=== PATIENT | male | born 1940 | race Two or more races ===

== ENCOUNTER 2018-04-05 03:10 | Inpatient (IN) ==
[2018-04-05 03:29] LABS: Baso # (Auto) 0.1 th/mm3 (0.0-0.2); Baso % (Auto) 0.8 % (0.0-2.0); Eos # (Auto) 0.1 th/mm3 (0.0-0.4); Eos % (Auto) 1.7 % (0.0-4.0); Hematocrit 44.1 % (39.0-51.0); Hemoglobin 14.6 gm/dL (13.0-17.0); Lymph # (Auto) 2.1 th/mm3 (1.0-4.8); Lymph % (Auto) 24.2 % (9.0-44.0); Mean Corpuscular HGB Conc 33.1 % (32.0-36.0); Mean Corpuscular Hemoglobin 29.6 pg (27.0-34.0); Mean Corpuscular Volume 89.3 fL (80.0-100.0); Mean Platelet Volume 7.5 fL (7.0-11.0); Mono # (Auto) 0.7 th/mm3 (0.0-0.9); Mono % (Auto) 8.6 % (0.0-8.0); Neut # (Auto) 5.5 th/mm3 (1.8-7.7); Neut % (Auto) 64.7 % (16.0-70.0); Platelet Count 272 th/mm3 (150-450); Red Blood Count 4.94 mil/mm3 (4.50-5.90); Red Cell Distribution Width 13.9 % (11.6-17.2); White Blood Count 8.5 th/mm3 (4.0-11.0)
[2018-04-05] MEDS: Sod Chloride 0.9% Inj 1,000 ML IV.CONT SCH ×2 (03:33→17:35)
[2018-04-05 03:37] LABS: Activated Partial Thrombo Time 32.3 sec (23.4-31.7); Prothrombin Time 10.1 sec (9.8-11.6)
[2018-04-05 03:47] LABS: Creatine Kinase 44 U/L (39-308)
--- NOTE | 2018-04-05 03:48 | CT ---
EXAM DATE: 04/05/2018 3:31 AM EST AGE/SEX: 77 years / Male INDICATIONS: Right sided weakness. CLINICAL DATA: This is the patient's initial encounter. Patient reports that signs and symptoms have been present for 1 day and indicates a pain score of 0/10. MEDICAL/SURGICAL HISTORY: Hypertension. Cerebrovascular disease. None. RADIATION DOSE: 56.35 CTDI (mGy) COMPARISON: [facility] – [place], CT CEREBRAL PERF W CONTRAST W 3D, 04/05/2018. . TECHNIQUE: CT of the head without contrast. Using automated exposure control and adjustment of the mA and/or kV according to patient size, radiation dose was kept as low as reasonably achievable to ob tain optimal diagnostic quality images. DICOM format image data is available electronically for revi ew and comparison. FINDINGS: Cerebrum: Prominence of the ventricles, sulci, and cisterns indicating diffuse cerebral atrophy. Old lacunar infarct of the left basal ganglia.. No evidence of midline shift, mass lesion, hemorrhage o r acute infarction. No extraaxial fluid collections are seen. Posterior Fossa: The cerebellum and brainstem are intact. The 4th ventricle is midline. The cerebe llopontine angle is unremarkable. Extracranial: The visualized portion of the orbits is intact. Skull: The calvaria is intact. No evidence of skull fracture. CONCLUSION: 1. No acute intracranial findings. 2. Diffuse atrophy. 3. Old left basal ganglia lacunar infarct. Report was called by [Dr. Lea to Dr. Ibarra at [phone]. ] Electronically signed by: Otoniel Lea MD 04/05/2018 3:47 AM EST
--- NOTE | 2018-04-05 03:52 | ED ---
HPI General Chief Complaint: Stroke Alert Stated Complaint: Cardiac Time Seen by Provider: 04/05/18 03:15 Source: patient and EMS Mode of arrival: EMS Limitations: physical limitation History of Present Illness HPI Narrative: 77-year-old male was brought in by EMS stroke alert. Patient went to bed around 9:00. Patient woke up at 2:30 in the morning with slurred speech and right facial weakness and right arm right leg weakness. Patient's called EMS. Patient was brought in for evaluation. Stroke alert was called from the field. Patient has history of CVA in the past. Patient also has history hypertension, diabetes, hyperlipidemia. Patient is a former smoker. No reported recent injury. Patient is not on anticoagulant. No history of atrial fibrillation. Onset (ago): hour(s) Last Observed Normal: 21:00 Timing confirmed by: spouse Location: Reports speech, right face, right arm and right leg History of same: No Severity: moderate Quality: Reports weak Relieving factors: none Exacerbating factors: none Context: Reports sudden onset On Anticoagulants: No Associated symptoms: Reports denies other symptoms Treatments Prior to Arrival: Reports none Related Data Home Medications Medication Instructions Recorded Confirmed atorvastatin 40 mg PO DAILY 04/05/18 04/05/18 metformin 500 mg PO BID 04/05/18 04/05/18 zolpidem 1 tab PO HS 04/05/18 04/05/18 Allergies Allergy/AdvReac Type Severity Reaction Status Date / Time No Known Allergies Uncoded 10/11/10 13:51 Review of Systems ROS: all other systems reviewed are negative PMFSH Medical History Medical History High cholesterol (Acute) Hypertension (Acute) Stroke (Acute) Social History Social History Second Hand Smoke Exposure: Yes Smoking Status: Former smoker Tobacco Type: Cigarettes How Often Do You Have a Drink Containing Alcohol: Monthly or less Recent Travel in [facility] within the Last 8 Weeks: No Recent Out of Country Travel within the Last 8 Weeks: No Immunization History Tetanus Immunization: Unsure Exam Narrative Exam Narrative: GENERAL: Well-nourished, well-developed patient. SKIN: Focused skin assessment warm/dry. HEAD: Normocephalic. EYES: No scleral icterus. No injection or drainage. NECK: Supple, trachea midline. No JVD or lymphadenopathy. CARDIOVASCULAR: Regular rate and rhythm without murmurs, gallops, or rubs. RESPIRATORY: Breath sounds equal bilaterally. No accessory muscle use. GASTROINTESTINAL: Abdomen soft, non-tender, nondistended. MUSCULOSKELETAL: No cyanosis, or edema. BACK: Nontender without obvious deformity. No CVA tenderness. Neurologic exam: Patient is lethargic however follow commands appropriately. Patient has right-sided facial drooping, slurred speech, weakness to right arm and right leg. Patient has visual field intact. Deep tendon reflexes 1+ and equal. Negative Babinski. Course Initial Documented Vital Signs Temperature 98.1 F 04/05/18 03:13 Pulse Rate 75 04/05/18 03:13 Respiratory Rate 16 04/05/18 03:13 Blood Pressure 172/122 H 04/05/18 03:13 Pulse Oximetry 98 04/05/18 03:13 Last Documented Vital Signs Temperature 98.1 F 04/05/18 03:13 Pulse Rate 66 04/05/18 03:57 Respiratory Rate 16 04/05/18 03:57 Blood Pressure 152/76 H 04/05/18 03:57 Pulse Oximetry 99 04/05/18 04:02 NIH Stroke Scale NIH Stroke Scale Level of Consciousness: 0-Alert Orientation Questions: 0-Answers both correct Responds to Commands: 0-Both tasks correct Gaze Eye Movement: 1-Partial gaze palsy Visual Gutiérrez: 0-No visual field defect Facial Movement: 2-Partial facial palsy Motor Functions Arm LEFT: 0-No drift Motor Functions Arm RIGHT: 1-Drift before 10 seconds Motor Functions Leg LEFT: 0-No drift Motor Functions Leg RIGHT: 0-No drift Limb Ataxia: 0-No ataxia Sensory Loss: 0-No sensory loss Best Language: 1-Mild aphasia Articulation: 1-Mild dysarthia Extinction or Inattention Sensory: 0-Absent Total: 6 Quality Measure Queries Stroke Last date observed well: 04/04/18 Last time observed well: 21:00 Medical Decision Making MDM Narrative Medical decision making narrative: 77-year-old male was brought in by EMS stroke alert. Patient went to bed around 9:00 in the evening and woke up around 2:30 in the morning with symptoms. I discussed the case with neurologist on-call, Dr. Blanca. Patient is not a candidate for TPA. Aspirin 300 mg suppository given. Head of bed flat. O2 2 L nasal cannula. Normal saline solution 100 cc an hour. Medical Screen Exam Complete: Yes Emergency Medical Condition: Yes Lab Data Lab results reviewed: Yes I reviewed the patient's lab results. Result diagrams: 04/05/18 03:13 Lab Results 04/05/18 04/05/18 04/05/18 Range/Units 03:13 03:13 03:13 WBC 8.5 (4.0-11.0) th/mm3 RBC 4.94 (4.50-5.90) mil/mm3 Hgb 14.6 (13.0-17.0) gm/dL POC Hgb (Calc) 15.0 (13.0-17.0) g/dL Hct 44.1 (39.0-51.0) % POC Hct 44.0 (39-51.0) % MCV 89.3 (80.0-100.0) fL MCH 29.6 (27.0-34.0) pg MCHC 33.1 (32.0-36.0) % RDW 13.9 (11.6-17.2) % Plt Count 272 (150-450) th/mm3 MPV 7.5 (7.0-11.0) fL Neut % (Auto) 64.7 (16.0-70.0) % Lymph % (Auto) 24.2 (9.0-44.0) % [place] % (Auto) 8.6 H (0.0-8.0) % Eos % (Auto) 1.7 (0.0-4.0) % Baso % (Auto) 0.8 (0.0-2.0) % Neut # (Auto) 5.5 (1.8-7.7) th/mm3 Lymph # (Auto) 2.1 (1.0-4.8) th/mm3 Baxter # (Auto) 0.7 (0.0-0.9) th/mm3 Eos # (Auto) 0.1 (0.0-0.4) th/mm3 Baso # (Auto) 0.1 (0.0-0.2) th/mm3 WBC Differential . Differential Comment Auto diff final PT 10.1 (9.8-11.6) sec INR 1.0 Ratio APTT 32.3 H (23.4-31.7) sec Fibrinogen 412 H (227-377) mg/dL POC Sodium 140 (137-144) mmol/L POC Potassium 3.8 (3.6-5.0) mmol/L POC Chloride 102 (102-111) mmol/L POC BUN 11 (5-21) mg/dL POC Creatinine 0.9 (0.6-1.3) mg/dL POC Glucose 179 H (68-110) mg/dL Total Creatine Kinase 44 (39-308) U/L Troponin I Less than 0.02 L (0.02-0.05) ng/mL Urine Color (Yellw/Straw) Urine Clarity (Clear) Urine pH (5.0-8.5) Ur Specific [place] (1.002-1.035) Urine Protein (Neg-Trace) mg/dL Urine Glucose (UA) (Negative) mg/dL Urine Ketones (Negative) mg/dL Urine Occult Blood (Negative) Urine Nitrate (Negative) Urine Bilirubin (Negative) Urine Urobilinogen (Less than 2) mg/dL Ur Leukocyte Esterase (Negative) Urine RBC (0-3) /hpf Urine WBC (0-5) /hpf Ur Transition Epith Cell (None) /hpf Ur Renal Epithelial Cell (None) /hpf Hyaline Casts (0-3) /lpf Micro UA Comment Ur Microscopic Review Urine Culture Comments Blood Type Blood Type Recheck Antibody Screen 04/05/18 04/05/18 Range/Units 03:13 04:25 WBC (4.0-11.0) th/mm3 RBC (4.50-5.90) mil/mm3 Hgb (13.0-17.0) gm/dL POC Hgb (Calc) (13.0-17.0) g/dL Hct (39.0-51.0) % POC Hct (39-51.0) % MCV (80.0-100.0) fL MCH (27.0-34.0) pg MCHC (32.0-36.0) % RDW (11.6-17.2) % Plt Count (150-450) th/mm3 MPV (7.0-11.0) fL Neut % (Auto) (16.0-70.0) % Lymph % (Auto) (9.0-44.0) % [place] % (Auto) (0.0-8.0) % Eos % (Auto) (0.0-4.0) % Baso % (Auto) (0.0-2.0) % Neut # (Auto) (1.8-7.7) th/mm3 Lymph # (Auto) (1.0-4.8) th/mm3 [place] # (Auto) (0.0-0.9) th/mm3 Eos # (Auto) (0.0-0.4) th/mm3 Baso # (Auto) (0.0-0.2) th/mm3 WBC Differential Differential Comment PT (9.8-11.6) sec INR Ratio APTT (23.4-31.7) sec Fibrinogen (227-377) mg/dL POC Sodium (137-144) mmol/L POC Potassium (3.6-5.0) mmol/L POC Chloride (102-111) mmol/L POC BUN (5-21) mg/dL POC Creatinine (0.6-1.3) mg/dL POC Glucose (68-110) mg/dL Total Creatine Kinase (39-308) U/L Troponin I (0.02-0.05) ng/mL Urine Color Yellow (Yellw/Straw) Urine Clarity Clear (Clear) Urine pH 6.0 (5.0-8.5) Ur Specific [place] 1.028 (1.002-1.035) Urine Protein Negative (Neg-Trace) mg/dL Urine Glucose (UA) 50 (Negative) mg/dL Urine Ketones Negative (Negative) mg/dL Urine Occult Blood Negative (Negative) Urine Nitrate Negative (Negative) Urine Bilirubin Negative (Negative) Urine Urobilinogen 0.2 (Less than 2) mg/dL Ur Leukocyte Esterase Negative (Negative) Urine RBC 5 H (0-3) /hpf Urine WBC 1 (0-5) /hpf Ur Transition Epith Cell <1 (None) /hpf Ur Renal Epithelial Cell <1 (None) /hpf Hyaline Casts 3 (0-3) /lpf Micro UA Comment Cath-culture not ind Ur Microscopic Review Not Reportable Urine Culture Comments Cath-cult not ind Blood Type A Positive Blood Type Recheck Required Antibody Screen Negative Imaging Data Attestation: I personally reviewed and interpreted this imaging study as follows : Radiologist's impression: Chest X-Ray 04/05/18 03:16 CONCLUSION: Low lung volumes and pulmonary vascular congestion. Head CT 04/05/18 03:16 CONCLUSION: 1. No acute intracranial findings. 2. Diffuse atrophy. 3. Old left basal ganglia lacunar infarct. Report was called by [Dr. Lea to Dr. Ibarra at [phone]. ] Head CTA 04/05/18 03:16 CONCLUSION: No evidence of proximal occlusion or high-grade stenosis. Report was called by [Dr. Lea to Dr. Rojas at [phone] ] Neck CTA 04/05/18 03:16 CONCLUSION: Ulcerated plaque right carotid bulb. No evidence of significant stenosis. CT CAD 04/05/18 03:19 CONCLUSION: Physiological brain perfusion parameters with RAPID analysis as above. The decision for consideration of therapy is multi factorial and multi disciplinary relying on subjective and objective clinical data. This data is not construed or intended to be the sole determinant of treatment eligibility. Discharge Plan Discharge Disposition Patient Disposition: ED Admit(ED Internal Use Only) Discharge Details Diagnosis: Acute cerebrovascular accident Physicians Team ED Provider: Dany Ibarra Primary Care Provider: UNKNOWN, Other Providers: Georgina Blanca Rxs /Orders / Referrals /Forms Prescriptions: No Action atorvastatin 40 mg Tablet 40 mg PO DAILY RF: 0 metformin 500 mg Tablet 500 mg PO BID RF: 0 zolpidem 5 mg Tablet 1 tab PO HS RF: 0 Status ED Status: With Doctor
[2018-04-05] MEDS ORDERED: Aspirin 300 MG Supp RECTAL ONE (03:56)
--- NOTE | 2018-04-05 03:56 | CT ---
EXAM DATE: 04/05/2018 3:41 AM EST AGE/SEX: 77 years / Male INDICATIONS: Right sided weakness. CLINICAL DATA: This is the patient's initial encounter. Patient reports that signs and symptoms have been present for 1 day and indicates a pain score of 0/10. MEDICAL/SURGICAL HISTORY: Hypertension. Cerebrovascular disease. None. RADIATION DOSE: 10.47 CTDI (mGy) ; Combined studies COMPARISON: [facility], CTA NECK W CONTRAST W 3D, 04/05/2018. . TECHNIQUE: Volumetric scanning was performed using a multi-row detector CT scanner during bolus infu landy of 100 ml Visipaque 320 (iodixanol) nonionic water-soluble contrast as a cumulative dose for mu ltiple exams. The data was post processed with a variety of visualization algorithms including full volume maximum intensity projection, multi-planar sliding thin slab reformation, curved planar refor mation, and surface rendering techniques. Using automated exposure control and adjustment of the mA and/or kV according to patient size, radiation dose was kept as low as reasonably achievable to obtai n optimal diagnostic quality images. DICOM format image data is available electronically for review and comparison. FINDINGS: There is excellent visualization of the major intracranial arteries out to the second-order branch ve ssels. There is no evidence for aneurysm, vessel truncation or stenosis, and no evidence for vascula r malformation. There is evidence of atherosclerotic disease with mild contour irregularity of the pr oximal MCA on the right. 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 CONCLUSION: No evidence of proximal occlusion or high-grade stenosis. Report was called by [Dr. Lea to Dr. Rojas at [phone] ] Electronically signed by: Otoniel Lea MD 04/05/2018 3:55 AM EST
--- NOTE | 2018-04-05 03:57 | CT ---
EXAM DATE: 04/05/2018 3:41 AM EST AGE/SEX: 77 years / Male INDICATIONS: Right sided weakness. CLINICAL DATA: This is the patient's initial encounter. Patient reports that signs and symptoms have been present for 1 day and indicates a pain score of 0/10. MEDICAL/SURGICAL HISTORY: Hypertension. Cerebrovascular disease. None. RADIATION DOSE: 217.41 CTDI (mGy) COMPARISON: No prior exams available for comparison. TECHNIQUE: CT of the head after intravenous administration of 100 ml Visipaque 320 (iodixanol) timmy onic water-soluble contrast as a cumulative dose for multiple exams. Using automated exposure contro l and adjustment of the mA and/or kV according to patient size, radiation dose was kept as low as redd sonably achievable to obtain optimal diagnostic quality images. DICOM format image data is available electronically for review and comparison. FINDINGS: 1. CBF (<30%) Volume (ml): 0 2. Perfusion (Tmax>6.0s) Volume (ml): 0 3. Mismatch Volume (ml) (Tmax>6.0 - CBF): 0 CONCLUSION: Physiological brain perfusion parameters with RAPID analysis as above. The decision for consideration of therapy is multi factorial and multi disciplinary relying on subjec tive and objective clinical data. This data is not construed or intended to be the sole determinant of treatment eligibility. Electronically signed by: Otoniel Lea MD 04/05/2018 3:56 AM EST
--- NOTE | 2018-04-05 04:01 | CT ---
EXAM DATE: 04/05/2018 3:51 AM EST AGE/SEX: 77 years / Male INDICATIONS: Right sided weakness. CLINICAL DATA: This is the patient's initial encounter. Patient reports that signs and symptoms have been present for 1 day and indicates a pain score of 0/10. MEDICAL/SURGICAL HISTORY: Hypertension. Cerebrovascular disease. None. RADIATION DOSE: 10.47 CTDI (mGy) ; Combined studies COMPARISON: No prior exams available for comparison. TECHNIQUE: Volumetric scanning was performed using a multirow detector CT scanner during bolus infus ion of 100 ml Visipaque 320 (iodixanol) nonionic water-soluble contrast as a cumulative dose for mul tiple exams. The data was postprocessed with a variety of visualization algorithms including full-v olume maximum intensity projection, multiplanar sliding thin-slab reformation, curved-planar reformat ion, and surface-rendering techniques. Using automated exposure control and adjustment of the mA and /or kV according to patient size, radiation dose was kept as low as reasonably achievable to obtain o ptimal diagnostic quality images. DICOM format image data is available electronically for review and comparison. Percent stenosis is calculated using the diameter of the stenotic region over the diameter of the nor mal distal internal carotid artery. FINDINGS: Diffuse atherosclerotic disease of the aortic arch. The proximal left subclavian artery demonstrates atherosclerotic plaque but no significant stenosis. Brachiocephalic artery and proximal right subclav adrianna artery are widely patent. Right common carotid artery is widely patent. There is an ulcerated plaque at the carotid bulb/right ICA origin. No significant stenosis. Right ICA is otherwise widely patent. External carotid artery is patent. Left common carotid artery is widely patent. Calcified plaque at the carotid bulb. Left ICA is widely patent. ECA is patent. Codominant vertebral arteries. No evidence of occlusion or high-grade stenosis. CONCLUSION: Ulcerated plaque right carotid bulb. No evidence of significant stenosis. Electronically signed by: Otoniel Lea MD 04/05/2018 4:00 AM EST
--- NOTE | 2018-04-05 04:09 | XR ---
EXAM DATE: 04/05/2018 3:50 AM EST AGE/SEX: 77 years / Male INDICATIONS: Stroke alert. CLINICAL DATA: This is the patient's initial encounter. Patient reports that signs and symptoms have been present for 1 day and indicates a pain score of Nonresponsive. MEDICAL/SURGICAL HISTORY: Hypertension. Stroke. None. COMPARISON: No prior exams available for comparison. FINDINGS: Single AP view the chest. Low lung volumes. Mild pulmonary vasculature prominence. Lungs grossly altagracia r. No evidence of pleural effusion or pneumothorax. Cardiomediastinal silhouette within normal limits . CONCLUSION: Low lung volumes and pulmonary vascular congestion. Electronically signed by: Otoniel Lea MD 04/05/2018 4:07 AM EST
[2018-04-05 04:38] LABS: Bilirubin,Urine Negative (Negative); Clarity,Urine Clear (Clear); Color,Urine Yellow (Yellw/Straw); Glucose,Urine (UA) 50 mg/dL (Negative); Hyaline Casts,Urine 3 /lpf (0-3); Leukocyte Esterase,Urine Negative (Negative); Nitrite,Urine Negative (Negative); Renal Epithelial Cells,Urine <1 /hpf; Specific Gravity,Urine 1.028 (1.002-1.035); Transitional Epi Cells,Urine <1 /hpf
[2018-04-05 04:39] LABS: Urobilinogen,Urine 0.2 mg/dL (Less than 2)
[2018-04-05] MEDS ORDERED: Dextrose 50% in Water 50 ML Vial IV.PUSH PRN ×2 (06:02→09:09)
--- NOTE | 2018-04-05 08:05 | P.CONNEU ---
History of Present Illness Service: Neurology Primary Care Provider: UNKNOWN Chief Complaint: Stroke History of Present Illness: 77-year-old male admitted for stroke. Went to sleep normal state of health woke up middle the night with right-sided weakness and speech changes. He is out of the IV TPA window. He has CT of the brain carotid performed no significant vaso-occlusive disease noted. He does not take any blood thinners no antiplatelet agents no history of previous TIA or stroke. No history of head or neck trauma no history of atrial fibrillation Review of Systems All other systems reviewed negative except as stated in HPI PMFSH - History History Provided By: Clinical Orthoptist / EMT - Medical History Medical History: Medical History (Last Reviewed 04/05/18 @ 08:57 by Garrett Meneses) High cholesterol Hypertension Stroke - Tobacco History Second Hand Smoke Exposure: Yes Tobacco Use In Past 30 Days: Yes Smoking Status: Former smoker Tobacco Type: Cigarettes - Alcohol History How Often Do You Have a Drink Containing Alcohol: Monthly or less - Travel History Recent Travel in the [facility] Within the Last 8 Weeks: No Recent Travel Out of the Country Within the Last 8 Weeks: No - Immunization History Tetanus Immunization: Unsure Medications and Allergies Active Medications: Active Medications Aspirin (Aspirin Chew) 81 mg PO DAILY [facility] Dextrose (D50w Vial) 50 ml IV.PUSH UNSCH PRN PRN Reason: PER HYPOGLYCEMIA PROTOCOL Glucagon (Glucagon Inj) 1 mg OTHER UNSCH PRN PRN Reason: for Hypoglycemia Protocol Sodium Chloride (Ns Inj) 1,000 mls @ 70 mls/hr IV.CONT .[id number] [facility] Last Admin: 04/05/18 03:33 Dose: 70 mls/hr Sodium Chloride (Ns Flush) 2 ml IV.FLUSH BID [facility] Sodium Chloride (Ns Flush) 2 ml IV.FLUSH PRN PRN PRN Reason: FLUSH AFTER USING IV ACCESS Allergies Allergy/AdvReac Type Severity Reaction Status Date / Time No Known Allergies Uncoded 10/11/10 13:51 Home Medications Medication Instructions Recorded Confirmed Type atorvastatin 40 mg PO DAILY 04/05/18 04/05/18 History metformin 500 mg PO BID 04/05/18 04/05/18 History zolpidem 1 tab PO HS 04/05/18 04/05/18 History Exam Vital signs: Vital Signs 04/05/18 03:13 04/05/18 03:14 04/05/18 03:20 Temperature 98.1 F Pulse Rate 75 77 Respiratory Rate 16 16 Blood Pressure 172/122 H 178/91 H Pulse Oximetry 98 99 99 04/05/18 03:28 04/05/18 03:57 04/05/18 04:02 Temperature Pulse Rate 68 66 Respiratory Rate 16 16 Blood Pressure 151/69 H 152/76 H Pulse Oximetry 98 98 99 04/05/18 05:27 04/05/18 06:10 Temperature Pulse Rate 84 67 Respiratory Rate 16 16 Blood Pressure 157/76 H 136/69 Pulse Oximetry 99 99 Intake & Output 04/04/18 04/05/18 04/05/18 18:59 06:59 18:59 Weight 75.7 kg Narrative: GENERAL: in NAD, SKIN: Warm and dry. HEAD: Atraumatic. Normocephalic. EYES: Pupils equal and round. ENT: No nasal bleeding or discharge. NECK: Trachea midline. No JVD. CARDIOVASCULAR: Regular rate and rhythm. RESPIRATORY: No accessory muscle use. GASTROINTESTINAL: Abdomen soft, non-tender, nondistended. MUSCULOSKELETAL: Extremities without clubbing, cyanosis, or edema. No obvious deformities. NEUROLOGICAL: Awake and alert. 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, right hemiplegia strength 0 out of 5 PSYCHIATRIC: Calm pleasant - Constitutional no acute distress - Routine HEENT Exam Head: Present: normocephalic Eye: Present: EOMI Results - Labs CBC & Chem 7: 04/05/18 03:13 Labs: Laboratory Results - last 24 hr 04/05/18 04/05/18 04/05/18 03:13 03:13 03:13 WBC 8.5 RBC 4.94 Hgb 14.6 POC Hgb (Calc) 15.0 Hct 44.1 POC Hct 44.0 MCV 89.3 MCH 29.6 MCHC 33.1 RDW 13.9 Plt Count 272 MPV 7.5 Neut % (Auto) 64.7 Lymph % (Auto) 24.2 Camp % (Auto) 8.6 H Eos % (Auto) 1.7 Baso % (Auto) 0.8 Neut # (Auto) 5.5 Lymph # (Auto) 2.1 Camp # (Auto) 0.7 Eos # (Auto) 0.1 Baso # (Auto) 0.1 WBC Differential . Differential Comment Auto diff final PT 10.1 INR 1.0 APTT 32.3 H Fibrinogen 412 H POC Sodium 140 POC Potassium 3.8 POC Chloride 102 POC BUN 11 POC Creatinine 0.9 POC Glucose 179 H Total Creatine Kinase 44 Troponin I Less than 0.02 L Urine Color Urine Clarity Urine pH Ur Specific [place] Urine Protein Urine Glucose (UA) Urine Ketones Urine Occult Blood Urine Nitrate Urine Bilirubin Urine Urobilinogen Ur Leukocyte Esterase Urine RBC Urine WBC Ur Transition Epith Cell Ur Renal Epithelial Cell Hyaline Casts Micro UA Comment Ur Microscopic Review Urine Culture Comments Blood Type Blood Type Recheck Antibody Screen 04/05/18 04/05/18 04/05/18 03:13 04:25 06:15 WBC RBC Hgb POC Hgb (Calc) Hct POC Hct MCV MCH MCHC RDW Plt Count MPV Neut % (Auto) Lymph % (Auto) Camp % (Auto) Eos % (Auto) Baso % (Auto) Neut # (Auto) Lymph # (Auto) Camp # (Auto) Eos # (Auto) Baso # (Auto) WBC Differential Differential Comment PT INR APTT Fibrinogen POC Sodium POC Potassium POC Chloride POC BUN POC Creatinine POC Glucose 203 H Total Creatine Kinase Troponin I Urine Color Yellow Urine Clarity Clear Urine pH 6.0 Ur Specific [place] 1.028 Urine Protein Negative Urine Glucose (UA) 50 Urine Ketones Negative Urine Occult Blood Negative Urine Nitrate Negative Urine Bilirubin Negative Urine Urobilinogen 0.2 Ur Leukocyte Esterase Negative Urine RBC 5 H Urine WBC 1 Ur Transition Epith Cell <1 Ur Renal Epithelial Cell <1 Hyaline Casts 3 Micro UA Comment Cath-culture not ind Ur Microscopic Review Not Reportable Urine Culture Comments Cath-cult not ind Blood Type A Positive Blood Type Recheck Required Antibody Screen Negative - Imaging Impressions Chest X-Ray 04/05/18 03:16 CONCLUSION: Low lung volumes and pulmonary vascular congestion. Head CT 04/05/18 03:16 CONCLUSION: 1. No acute intracranial findings. 2. Diffuse atrophy. 3. Old left basal ganglia lacunar infarct. Report was called by [Dr. Lea to Dr. Ibarra at [phone]. ] Head CTA 04/05/18 03:16 CONCLUSION: No evidence of proximal occlusion or high-grade stenosis. Report was called by [Dr. Lea to Dr. Rojas at [phone] ] Neck CTA 04/05/18 03:16 CONCLUSION: Ulcerated plaque right carotid bulb. No evidence of significant stenosis. CT CAD 04/05/18 03:19 CONCLUSION: Physiological brain perfusion parameters with RAPID analysis as above. The decision for consideration of therapy is multi factorial and multi disciplinary relying on subjective and objective clinical data. This data is not construed or intended to be the sole determinant of treatment eligibility. Review/Management - Diagnosis (1) Acute ischemic stroke Code(s): I63.9 - Cerebral infarction, unspecified Status: Acute Current Visit: Yes (2) Hypertension Code(s): I10 - Essential (primary) hypertension Status: Acute Current Visit : Yes - Review/Management Plan: May have a left lower midbrain, upper pontine paramedian stroke resulting in right hemiplegia and internuclear ophthalmoplegia Possible small vessel ischemia secondary to chronic hypertension, dyslipidemia CTA carotids showing right-sided plaque which is not a culprit vessel and is in the case of stroke, in addition not hemodynamically significant CTA brain no vessel occlusion Recommendation MRI brain Aspirin suppository until tolerating p.o. cleared by speech 2D echo Telemetry SCDs Check fasting lipids, HbA1c Therapy Permissive hypertension tension Discussed with patient and spouse Behavioral modification and risk factor reduction. Weight loss, blood pressure control, blood sugar control, lipid control. Exercise
--- NOTE | 2018-04-05 08:17 | ECG ---
Date Performed: 04/05/2018 Time Performed: 03:45:37 PTAGE: 77 years EKG: Sinus rhythm NORMAL ECG NO PREVIOUS TRACING DOCTOR: Ryan Golden Interpretating Date/Time 04/05/2018 08:17:06
[2018-04-05] MEDS ORDERED: Aspirin 300 MG Supp RECTAL SCH (09:15)
[2018-04-05 10:05] LABS: Chol/HDL Ratio 4.21 Ratio; HDL Cholesterol 42.2 mg/dL (40.0-60.0); Thyroid Stimulating Hormone 2.98 uIU/mL (0.358-3.740)
--- NOTE | 2018-04-05 10:20 | MR ---
EXAM DATE: 04/05/2018 9:36 AM EST AGE/SEX: 77 years / Male INDICATIONS: Right sided weakness. CLINICAL DATA: This is the patient's initial encounter. Patient reports that signs and symptoms have been present for 1 day and indicates a pain score of 0/10. MEDICAL/SURGICAL HISTORY: Diabetes mellitus type II. Hypertension. Cerebrovascular disease. N one. COMPARISON: [facility], CT HEAD W/O CONTRAST, 04/05/2018. . TECHNIQUE: Multiplanar, multisequence examination of the brain was performed without contrast. FINDINGS: Cerebrum: The ventricles are normal for age. No evidence of midline shift, mass lesion, or hemorrha ge. There is a small old lacunar infarct in the left basal ganglia. No extraaxial fluid collections a re seen. The pituitary gland and suprasellar cistern are normal in configuration. White Matter: On the FLAIR weighted images there is increased signal in the centrum semiovale and pe riventricular white matter characteristic of chronic small vessel ischemic change. Posterior Fossa: The cerebellum and brainstem are intact. The 4th ventricle is midline. The cerebel lopontine angle is unremarkable. The cerebellar tonsils are normal in position. Diffusion Imaging: On the echoplanar weighted images there is a linear band of mild restricted diffu landy along the left side of the midbrain. This is best seen on axial image #8. Extracranial: The visualized portions of the orbits and paranasal sinuses are unremarkable. CONCLUSION: 1. Focal area of mild restricted diffusion along the left side of the midbrain consistent with an ac nondalton to subacute infarction. 2. Atrophy and chronic small vessel ischemic change. 3. Small old lacunar infarct in the left basal ganglia. Electronically signed by: Franki Almodovar MD 04/05/2018 10:18 AM EST
[2018-04-05] MEDS ORDERED: Labetalol HCl Inj 100 MG/20 ML Vial IV.PUSH PRN (12:27)
[2018-04-05] MEDS: Lidocaine 5% Patch T-DERMAL SCH (12:39)
--- NOTE | 2018-04-05 12:40 | P.HPIM ---
History of Present Illness Primary Care Physician: UNKNOWN Chief Complaint: Stroke alert History of Present Illness: This is a 77-year-old male with a history of previous CVA with no residual deficits, hypertension, diabetes mellitus and hyperlipidemia. He presented to the ED via EMS stroke alert. Went to bed around 9 last night and woke up at 230 this morning with slurred speech with right facial, right arm and right leg weakness. His then called EMS. Stroke workup shows left midbrain CVA. He has been started on aspirin suppository. Complains of lower back pain which is chronic. He is compliant with his medical therapy. All other systems reviewed negative Diagnosis (1) Acute ischemic stroke: (2) Hypertension: Inpatient Certification Inpatient Certification: I certify that the inpatient services were ordered in accordance with Medicare regulations governing the order. This includes certification that hospital inpatient services are reasonable and necessary and in the case of services not specified as inpatient-only under 42 CFR 419.22(n), that they are appropriately provided as inpatient services in accordance to with the 2-midnight benchmark under 43 CFR 412.3(e) Estimated Total Length of Stay (Days): 3 Plans for Post Hospital Care: Not yet determined Review of Systems Review of Systems: all other systems reviewed are negative [facility] Medical History Medical History High cholesterol (Acute) Hypertension (Acute) Stroke (Acute) Social History Social History Substance History: No History of Abuse Second Hand Smoke Exposure: No Smoking Status: Former smoker Tobacco Type: Cigarettes How Often Do You Have a Drink Containing Alcohol: 4 or more times a week Recent Travel in [facility] within the Last 8 Weeks: Yes Recent Out of Country Travel within the Last 8 Weeks: Yes Immunization History Tetanus Immunization: Unsure Hx Influenza Vaccine This Season: No Medications and Allergies Allergies Allergy/AdvReac Type Severity Reaction Status Date / Time No Known Allergies Uncoded 10/11/10 13:51 Home Medications Medication Instructions Recorded Confirmed Type atorvastatin 40 mg PO DAILY 04/05/18 04/05/18 History metformin 500 mg PO BID 04/05/18 04/05/18 History zolpidem 1 tab PO HS 04/05/18 04/05/18 History Active Medications: Active Medications Aspirin (Aspirin Supp) 300 mg RECTAL DAILY [facility] Dextrose (D50w Vial) 50 ml IV.PUSH UNSCH PRN PRN Reason: PER HYPOGLYCEMIA PROTOCOL Enalaprilat (Vasotec Inj) 1.25 mg IV.PUSH Q4H PRN PRN Reason: For SBP > 220 or DBP > 120 Glucagon (Glucagon Inj) 1 mg OTHER PRN PRN PRN Reason: for Hypoglycemia Protocol Sodium Chloride (Ns Inj) 1,000 mls @ 70 mls/hr IV.CONT .[id number] [facility] Last Admin: 04/05/18 03:33 Dose: 70 mls/hr Insulin Human Regular (Novolin R Correctional Sugar Inj) 0 units SQ ACHS [facility]; Protocol Labetalol HCl (Trandate Inj) 10 mg IV.PUSH Q2H PRN PRN Reason: For SBP > 220 or DBP > 120 Lidocaine HCl (Lidoderm 5% Patch.12 Hr) 1 patch T-DERMAL DAILY [facility] Patch Removal (Remove Old Patch) 1 each T-DERMAL HS [facility] Sodium Chloride (Ns Flush) 2 ml IV.FLUSH BID [facility] Last Admin: 04/05/18 08:32 Dose: Not Given Sodium Chloride (Ns Flush) 2 ml IV.FLUSH PRN PRN PRN Reason: FLUSH AFTER USING IV ACCESS Physical Exam Vital signs: Last Vital Signs Temp 97.4 F L 04/05/18 12:00 Pulse 79 04/05/18 12:00 Resp 16 04/05/18 12:00 BP 153/70 H 04/05/18 12:00 Pulse Ox 97 04/05/18 12:00 Intake & Output 04/03/18 04/04/18 04/05/18 04/06/18 06:59 06:59 06:59 06:59 Weight 75.7 kg Narrative: GENERAL: in NAD, SKIN: Warm and dry. HEAD: Atraumatic. Normocephalic. EYES: Pupils equal and round. ENT: No nasal bleeding or discharge. NECK: Trachea midline. No JVD. CARDIOVASCULAR: Regular rate and rhythm. RESPIRATORY: No accessory muscle use. GASTROINTESTINAL: Abdomen soft, non-tender, nondistended. MUSCULOSKELETAL: Extremities without clubbing, cyanosis, or edema. No obvious deformities. NEUROLOGICAL: Awake and alert. Severely dysarthric speech, right facial weakness,right hemiplegia strength 0 out of 5 PSYCHIATRIC: Calm pleasant Results Labs CBC & Chem 7: 12/11/18 03:13 Imaging Impressions Chest X-Ray 04/05/18 03:16 CONCLUSION: Low lung volumes and pulmonary vascular congestion. Head CT 04/05/18 03:16 CONCLUSION: 1. No acute intracranial findings. 2. Diffuse atrophy. 3. Old left basal ganglia lacunar infarct. Report was called by [Dr. Lea to Dr. Ibarra at [phone]. ] Head CTA 04/05/18 03:16 CONCLUSION: No evidence of proximal occlusion or high-grade stenosis. Report was called by [Dr. Lea to Dr. Rojas at [phone] ] Neck CTA 04/05/18 03:16 CONCLUSION: Ulcerated plaque right carotid bulb. No evidence of significant stenosis. CT CAD 04/05/18 03:19 CONCLUSION: Physiological brain perfusion parameters with RAPID analysis as above. The decision for consideration of therapy is multi factorial and multi disciplinary relying on subjective and objective clinical data. This data is not construed or intended to be the sole determinant of treatment eligibility. Head MRI 04/05/18 05:24 CONCLUSION: 1. Focal area of mild restricted diffusion along the left side of the midbrain consistent with an acute to subacute infarction. 2. Atrophy and chronic small vessel ischemic change. 3. Small old lacunar infarct in the left basal ganglia. Caprini VTE Risk Assessment Caprini VTE Risk Assessment: Moderate/High Risk (score >= 2) Caprini Risk Assessment Model: Point Value = 1 Point Value = 2 Point Value = 3 Point Value = 5 Age 41-60 Minor surgery BMI > 25 kg/m2 Swollen legs Varicose veins or History of unexplained or recurrent spontaneous Oral contraceptives or hormone replacement Sepsis (< 1 month) Serious lung disease, including pneumonia (< 1 month) Abnormal pulmonary function Acute myocardial infarction Congestive heart failure (< 1 month) History of inflammatory bowel disease Medical patient at bed rest Age 61-74 Arthroscopic surgery Major open surgery (> 45 min) Laparoscopic surgery (> 45 min) Malignancy Confined to bed (> 72 hours) Immobilizing plaster cast Central venous access Age >= 75 History of VTE Family history of VTE Factor V Leiden Prothrombin [id number] Lupus anticoagulant Anticardiolipin antibodies Elevated serum homocysteine Heparin-induced thrombocytopenia Other congenital or acquired thrombophilia Stroke (< 1 month) Elective arthroplasty Hip, pelvis, or leg fracture Acute spinal cord injury (< 1 month) Prophylaxis Regimen: Total Risk Factor Score Risk Level Prophylaxis Regimen 0-1 Low Early ambulation 2 Moderate Order ONE of the following: *Sequential Compression Device (SCD) *Heparin 5000 units SQ BID 3-4 Higher Order ONE of the following medications: *Heparin 5000 units SQ TID *Enoxaparin/Lovenox 40 mg SQ daily (WT < 150 kg, CrCl > 30 mL/min) *Enoxaparin/Lovenox 30 mg SQ daily (WT < 150 kg, CrCl > 10-29 mL/min) *Enoxaparin/Lovenox 30 mg SQ BID (WT < 150 kg, CrCl > 30 mL/min) AND/OR *Sequential Compression Device (SCD) 5 or more Highest Order ONE of the following medications: *Heparin 5000 units SQ TID (Preferred with Epidurals) *Enoxaparin/Lovenox 40 mg SQ daily (WT < 150 kg, CrCl > 30 mL/min) *Enoxaparin/Lovenox 30 mg SQ daily (WT < 150 kg, CrCl > 10-29 mL/min) *Enoxaparin/Lovenox 30 mg SQ BID (WT < 150 kg, CrCl > 30 mL/min) AND *Sequential Compression Device (SCD) Assessment and Plan (1) Acute ischemic stroke: Code(s): I63.9 - Cerebral infarction, unspecified Status: Acute (2) Hypertension: Code(s): I10 - Essential (primary) hypertension Status: Acute Plan This is a 77-year-old male with a history of previous CVA with no residual deficits, hypertension, diabetes mellitus and hyperlipidemia. He presented to the ED via EMS stroke alert secondary to acute onset of slurred speech with right facial, right arm and right leg weakness. His then called EMS. Stroke workup shows left midbrain CVA. Acute left midbrain CVA. Patient will be admitted for stroke workup. Follow- up echocardiogram, lipid profile and A1c. Continue aspirin and permissive hypertension with IV fluids. Treat BP if blood pressure more than 220/110. EKG debility reviewed by me with sinus rhythm. Monitor on telemetry. Consult neurology, PT, OT and ST. Diabetes mellitus. Monitor finger sticks with sliding scale coverage. Do not cover fingersticks less than 200 while n.p.o. Chronic low back pain. Symptomatic control with Lidoderm patch and heat pads DVT prophylaxis with SCD and early ambulation. Pharmacological prophylaxis if okay with neurology H&P: Quality VTE Deep Vein Thrombosis/Pulmonary Embolism Present on Admission: No _ (1) Hypertension Qualifiers: Hypertension type:
[2018-04-05] MEDS: Insulin NovoLIN Regular Correctional Sugar Inj SQ SCH ×3 (12:51→22:37)
--- NOTE | 2018-04-05 20:51 | ECHRPT ---
Indication: Atrial Fib and Flutter CONCLUSIONS Normal left ventricular size. Wall thickness is measured at the upper limits of normal. The left ventricular systolic function is normal with an estimated ejection fraction of 55%. Trace mitral valve regurgitation. Aortic valve sclerosis is present. There is trace tricuspid valve regurgitation. The estimated pulmonary arterial pressure is 32 mmHg. BP: / HR: Rhythm: MEASUREMENTS (Male / Female) Normal Values Technical Quality:Technically difficult study 2D ECHO LV Diastolic Diameter PLAX 5.0 cm 4.2 - 5.9 / 3.9 - 5.3 cm LV Systolic Diameter PLAX 3.2 cm IVS Diastolic Thickness 1.2 cm 0.6 - 1.0 / 0.6 - 0.9 cm LVPW Diastolic Thickness 1.1 cm 0.6 - 1.0 / 0.6 - 0.9 cm LV Relative Wall Thickness 0.5 LVOT Diameter 2.2 cm Aortic Root Diameter 2.8 cm LA Systolic Diameter LX 3.0 cm 3.0 - 4.0 / 2.7 - 3.8 cm DOPPLER AV Peak Velocity 152.0 cm/s AV Peak Gradient 9.2 mmHg LVOT Peak Velocity 106.0 cm/s LVOT Peak Gradient 4.5 mmHg AV Area Cont Eq pk 2.7 cm Mitral E Point Velocity 55.8 cm/s Mitral A Point Velocity 102.0 cm/s Mitral E to A Ratio 0.5 LV E' Lateral Velocity 8.5 cm/s Mitral E to LV E' Lateral Ratio 6.6 LV E' Septal Velocity 7.2 cm/s Mitral E to LV E' Septal Ratio 7.7 TR Peak Velocity 233.0 cm/s TR Peak Gradient 21.7 mmHg Right Atrial Pressure 10.0 mmHg Pulmonary Artery Systolic Pressu 31.7 mmHg Right Ventricular Systolic Press 31.7 mmHg PV Peak Velocity 93.7 cm/s PV Peak Gradient 3.5 mmHg FINDINGS LEFT VENTRICLE Normal left ventricular size. Wall thickness is measured at the upper limits of normal. The left ventricular systolic function is normal with an estimated ejection fraction of 55%. RIGHT VENTRICLE Normal right ventricular size and systolic function. LEFT ATRIUM The left atrial size is normal. RIGHT ATRIUM The right atrial size is normal. ATRIAL SEPTUM Normal atrial septal thickness without atrial level shunting by limited color doppler interrogation. AORTA The aortic root and proximal ascending aorta are normal in size on limited imaging. MITRAL VALVE Trace mitral valve regurgitation. AORTIC VALVE Trileaflet aortic valve. Aortic valve sclerosis is present. TRICUSPID VALVE There is trace tricuspid valve regurgitation. The estimated pulmonary arterial pressure is 32 mmHg. PULMONARY VALVE The pulmonary valve is not well visualized. VESSELS The inferior vena cava (IVC) is normal in size. PERICARDIUM There is no pericardial effusion. Eileen Garcia MD, FACC (Electronically Signed) Final Date:05 April 2018 20:50
[2018-04-06 06:24] LABS: Chol/HDL Ratio 3.74 Ratio; HDL Cholesterol 47.5 mg/dL (40.0-60.0)
--- NOTE | 2018-04-06 07:53 | P.PNNEU ---
Subjective Subjective Comments: No headache chest pain or dyspnea. Double vision improved left leg strength better Active Medications: Active Medications Aspirin (Aspirin Supp) 300 mg RECTAL DAILY [facility] Dextrose (D50w Vial) 50 ml IV.PUSH UNSCH PRN PRN Reason: PER HYPOGLYCEMIA PROTOCOL Enalaprilat (Vasotec Inj) 1.25 mg IV.PUSH Q4H PRN PRN Reason: For SBP > 220 or DBP > 120 Glucagon (Glucagon Inj) 1 mg OTHER PRN PRN PRN Reason: for Hypoglycemia Protocol Sodium Chloride (Ns Inj) 1,000 mls @ 70 mls/hr IV.CONT .[id number] [facility] Last Admin: 04/05/18 17:35 Dose: 70 mls/hr Insulin Human Regular (Novolin R Correctional Sugar Inj) 0 units SQ ACHS [facility]; Protocol Last Admin: 04/05/18 22:37 Dose: Not Given Labetalol HCl (Trandate Inj) 10 mg IV.PUSH Q2H PRN PRN Reason: For SBP > 220 or DBP > 120 Lidocaine HCl (Lidoderm 5% Patch.12 Hr) 1 patch T-DERMAL DAILY [facility] Last Admin: 04/05/18 12:39 Dose: 1 patch Patch Removal (Remove Old Patch) 1 each T-DERMAL HS [facility] Last Admin: 04/05/18 21:46 Dose: 1 each Sodium Chloride (Ns Flush) 2 ml IV.FLUSH BID [facility] Last Admin: 04/05/18 22:39 Dose: 2 ml Sodium Chloride (Ns Flush) 2 ml IV.FLUSH PRN PRN PRN Reason: FLUSH AFTER USING IV ACCESS Allergies/Adverse Reactions: Allergies Allergy/AdvReac Type Severity Reaction Status Date / Time No Known Allergies Uncoded 10/11/10 13:51 Review of Systems All other systems reviewed negative except as stated in HPI Physical Exam Vital signs: Vital Signs 04/05/18 08:08 04/05/18 08:22 04/05/18 08:33 Temperature 97.6 F Pulse Rate 67 76 Respiratory Rate 16 Blood Pressure 133/78 Pulse Oximetry 99 99 04/05/18 11:14 04/05/18 12:00 04/05/18 15:15 Temperature 97.4 F L Pulse Rate 73 79 64 Respiratory Rate 16 Blood Pressure 153/70 H Pulse Oximetry 97 04/05/18 16:00 04/05/18 20:00 04/06/18 00:00 Temperature 97.7 F 97.9 F 97.8 F Pulse Rate 69 80 66 Respiratory Rate 16 18 18 Blood Pressure 123/74 121/65 135/75 Pulse Oximetry 97 97 97 04/06/18 04:00 04/06/18 07:22 04/06/18 07:23 Temperature 97.9 F Pulse Rate 66 Respiratory Rate 18 18 Blood Pressure 144/70 H Pulse Oximetry 64 L 98 98 Intake & Output 04/05/18 04/06/18 04/06/18 18:59 06:59 18:59 Intake Total 1000 / 1000 Balance 1000 / 1000 Weight 75.7 kg Intake: IV 1000 / 1000 NS Inj 1,000 ML @ 70 mls/hr IV. 1000 / 1000 CONT .[id number] [facility] Rx#:[id number] Other: # Voids 1 3 Narrative: GENERAL: in NAD, SKIN: Warm and dry. HEAD: Atraumatic. Normocephalic. EYES: Pupils equal and round. ENT: No nasal bleeding or discharge. NECK: Trachea midline. No JVD. CARDIOVASCULAR: Regular rate and rhythm. RESPIRATORY: No accessory muscle use. GASTROINTESTINAL: Abdomen soft, non-tender, nondistended. MUSCULOSKELETAL: Extremities without clubbing, cyanosis, or edema. No obvious deformities. NEUROLOGICAL: Awake and alert. Moderately dysarthric speech, rt facial weakness , minimal right eye exotropia, horizontal gaze improved able to abduct the left eye now, right upper extremity 0 out of 5, right lower extremity 2-3 out of 5 PSYCHIATRIC: Calm pleasant - Constitutional no acute distress - Routine HEENT Exam Head: Present: normocephalic Eye: Present: EOMI Objective Laboratory Results - last 24 hr 04/05/18 04/05/18 04/05/18 03:13 03:13 08:02 POC Glucose 181 H Hemoglobin A1c 8.0 H Triglycerides 105 Cholesterol 178 LDL Cholesterol, Calc 115 H HDL Cholesterol 42.2 Cholesterol/HDL Ratio 4.21 Vitamin B12 157 L TSH 2.980 04/05/18 04/05/18 04/05/18 12:46 17:32 22:36 POC Glucose 138 H 122 H 145 H Hemoglobin A1c Triglycerides Cholesterol LDL Cholesterol, Calc HDL Cholesterol Cholesterol/HDL Ratio Vitamin B12 TSH 04/06/18 05:04 POC Glucose Hemoglobin A1c Triglycerides 111 Cholesterol 178 LDL Cholesterol, Calc 108 H HDL Cholesterol 47.5 Cholesterol/HDL Ratio 3.74 Vitamin B12 TSH Review/Management - Diagnosis (1) Acute ischemic stroke Code(s): I63.9 - Cerebral infarction, unspecified Status: Acute Current Visit: Yes (2) Hypertension Code(s): I10 - Essential (primary) hypertension Status: Acute Current Visit : Yes - Review/Management Plan: 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 Weight loss, blood pressure control, blood sugar control, lipid control. Exercise
[2018-04-06] MEDS ORDERED: Lidocaine 5% Patch T-DERMAL SCH (09:00)
--- NOTE | 2018-04-06 09:13 | P.CONCA ---
History of Present Illness Service: cardiology Consult date: 04/06/18 Requesting Physician: Randal Sauceda Reason for Consult: stroke Primary Care Provider: UNKNOWN Chief Complaint: Stroke alert History of Present Illness: 77-year-old male with a history of previous CVA with no residual deficits, hypertension, diabetes mellitus and hyperlipidemia and long smoking history ( quit 2 years ago). He presented to the ED 04/05/18 via EMS stroke alert. Went to bed around 9 pm and woke up at 230am with slurred speech with right facial weakness, diplopia, right arm and right leg weakness. His then called EMS. Stroke workup shows left midbrain CVA. He has been started on aspirin suppository. Complains of lower back pain which is chronic. No history of atrial fibrillation or prior cardiovascular disease. All other systems reviewed negative. ECG is NSR with no st-t wave abnormality. telemetry - NSR currently. episode of Paroxysmal atrial flutter 2:1, with HR 150 and intermittent PVCs Review of Systems All other systems reviewed negative except as stated in HPI PMFSH - History History Provided By: Patient, Family Member - Medical History Medical History: Medical History (Last Reviewed 04/06/18 @ 06:34 by Ceci Duque) High cholesterol Hypertension Stroke - Tobacco History Second Hand Smoke Exposure: No Tobacco Use In Past 30 Days: Yes Smoking Status: Former smoker Tobacco Type: Cigarettes - Alcohol History How Often Do You Have a Drink Containing Alcohol: 4 or more times a week - Substance Use History Substance History: No History of Abuse - Travel History Recent Travel in the [place] Within the Last 8 Weeks: Yes Recent Travel Out of the Country Within the Last 8 Weeks: Yes - Immunization History Tetanus Immunization: Unsure Hx Influenza Vaccine This Season: No Medications and Allergies Active Medications: Active Medications Aspirin (Aspirin Supp) 300 mg RECTAL DAILY [facility] Dextrose (D50w Vial) 50 ml IV.PUSH UNSCH PRN PRN Reason: PER HYPOGLYCEMIA PROTOCOL Enalaprilat (Vasotec Inj) 1.25 mg IV.PUSH Q4H PRN PRN Reason: For SBP > 220 or DBP > 120 Glucagon (Glucagon Inj) 1 mg OTHER PRN PRN PRN Reason: for Hypoglycemia Protocol Sodium Chloride (Ns Inj) 1,000 mls @ 70 mls/hr IV.CONT .[id number] [facility] Last Admin: 04/05/18 17:35 Dose: 70 mls/hr Insulin Human Regular (Novolin R Correctional Sugar Inj) 0 units SQ ACHS [facility]; Protocol Last Admin: 04/05/18 22:37 Dose: Not Given Labetalol HCl (Trandate Inj) 10 mg IV.PUSH Q2H PRN PRN Reason: For SBP > 220 or DBP > 120 Lidocaine HCl (Lidoderm 5% Patch.12 Hr) 1 patch T-DERMAL DAILY [facility] Last Admin: 04/05/18 12:39 Dose: 1 patch Patch Removal (Remove Old Patch) 1 each T-DERMAL HS [facility] Last Admin: 04/05/18 21:46 Dose: 1 each Sodium Chloride (Ns Flush) 2 ml IV.FLUSH BID [facility] Last Admin: 04/05/18 22:39 Dose: 2 ml Sodium Chloride (Ns Flush) 2 ml IV.FLUSH PRN PRN PRN Reason: FLUSH AFTER USING IV ACCESS Allergies Allergy/AdvReac Type Severity Reaction Status Date / Time No Known Allergies Uncoded 10/11/10 13:51 Home Medications Medication Instructions Recorded Confirmed Type atorvastatin 40 mg PO DAILY 04/05/18 04/05/18 History metformin 500 mg PO BID 04/05/18 04/05/18 History zolpidem 1 tab PO HS 04/05/18 04/05/18 History Exam Vital signs: Vital Signs 04/05/18 11:14 04/05/18 12:00 04/05/18 15:15 Temperature 97.4 F L Pulse Rate 73 79 64 Respiratory Rate 16 Blood Pressure 153/70 H Pulse Oximetry 97 04/05/18 16:00 04/05/18 20:00 04/06/18 00:00 Temperature 97.7 F 97.9 F 97.8 F Pulse Rate 69 80 66 Respiratory Rate 16 18 18 Blood Pressure 123/74 121/65 135/75 Pulse Oximetry 97 97 97 04/06/18 04:00 04/06/18 07:22 04/06/18 07:23 Temperature 97.9 F Pulse Rate 66 Respiratory Rate 18 18 Blood Pressure 144/70 H Pulse Oximetry 64 L 98 98 Intake & Output 04/05/18 04/06/18 04/06/18 18:59 06:59 18:59 Intake Total 1000 / 1000 Balance 1000 / 1000 Weight 75.7 kg Intake: IV 1000 / 1000 NS Inj 1,000 ML @ 70 mls/hr IV. 1000 / 1000 CONT .[id number] [facility] Rx#:[id number] Other: # Voids 1 3 Narrative: GENERAL: slurred speech SKIN: Warm and dry. HEAD: Atraumatic. Normocephalic. right sided facial droop. NECK: Trachea midline. No JVD. CARDIOVASCULAR: Regular rate and rhythm. No murmurs RESPIRATORY: No accessory muscle use. Clear to auscultation. Breath sounds equal bilaterally. GASTROINTESTINAL: Abdomen soft, non-tender, nondistended. MUSCULOSKELETAL: Extremities without clubbing, cyanosis, or edema. No obvious deformities. NEUROLOGICAL: Awake and alert. slurred speech. right hemiparesis PSYCHIATRIC: Appropriate mood and affect; insight and judgment normal. Results 04/05/18 03:13 Cardiac Enzymes 04/05/18 Range/Units 03:13 Troponin I Less than 0.02 L (0.02-0.05) ng/mL Coagulation 04/05/18 Range/Units 03:13 PT 10.1 (9.8-11.6) sec APTT 32.3 H (23.4-31.7) sec Lipids 04/05/18 04/06/18 Range/Units 03:13 05:04 Triglycerides 105 111 (42-150) mg/dL Cholesterol 178 178 (120-200) mg/dL HDL Cholesterol 42.2 47.5 (40.0-60.0) mg/dL Cholesterol/HDL Ratio 4.21 3.74 Ratio CBC 04/05/18 Range/Units 03:13 WBC 8.5 (4.0-11.0) th/mm3 RBC 4.94 (4.50-5.90) mil/mm3 Hgb 14.6 (13.0-17.0) gm/dL Hct 44.1 (39.0-51.0) % Plt Count 272 (150-450) th/mm3 Neut # (Auto) 5.5 (1.8-7.7) th/mm3 Lymph # (Auto) 2.1 (1.0-4.8) th/mm3 Levy # (Auto) 0.7 (0.0-0.9) th/mm3 Eos # (Auto) 0.1 (0.0-0.4) th/mm3 Baso # (Auto) 0.1 (0.0-0.2) th/mm3 Intake and Output 04/05/18 04/06/18 04/06/18 22:59 06:59 14:59 Intake Total 1000 / 1000 Balance 1000 / 1000 Intake: IV 1000 / 1000 NS Inj 1,000 ML @ 70 mls/hr IV. 1000 / 1000 CONT .[id number] [facility] Rx#:[id number] Other: # Voids 1 3 Weight 75.7 kg - Imaging and Cardiology Imaging: Impressions Chest X-Ray 04/05/18 03:16 CONCLUSION: Low lung volumes and pulmonary vascular congestion. Head CT 04/05/18 03:16 CONCLUSION: 1. No acute intracranial findings. 2. Diffuse atrophy. 3. Old left basal ganglia lacunar infarct. Report was called by [Dr. Lea to Dr. Ibarra at [id number]. ] Head CTA 04/05/18 03:16 CONCLUSION: No evidence of proximal occlusion or high-grade stenosis. Report was called by [Dr. Lea to Dr. Rojas at [phone] ] Neck CTA 04/05/18 03:16 CONCLUSION: Ulcerated plaque right carotid bulb. No evidence of significant stenosis. CT CAD 04/05/18 03:19 CONCLUSION: Physiological brain perfusion parameters with RAPID analysis as above. The decision for consideration of therapy is multi factorial and multi disciplinary relying on subjective and objective clinical data. This data is not construed or intended to be the sole determinant of treatment eligibility. Head MRI 04/05/18 05:24 CONCLUSION: 1. Focal area of mild restricted diffusion along the left side of the midbrain consistent with an acute to subacute infarction. 2. Atrophy and chronic small vessel ischemic change. 3. Small old lacunar infarct in the left basal ganglia. 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 Normal LV systolic fxn with no significant valvulopathy. -no need for RUTH -rest per primary team Will sign off. Call with questions.
[2018-04-06] MEDS ORDERED: Digoxin 125 MCG Tablet PO SCH (09:15)
[2018-04-06] MEDS: Insulin NovoLIN Regular Correctional Sugar Inj SQ SCH ×3 (09:21→18:10)
[2018-04-06] MEDS: Sod Chloride 0.9% Inj 1,000 ML IV.CONT SCH (09:22)
[2018-04-06] MEDS: Aspirin 300 MG Supp RECTAL SCH (09:23)
[2018-04-06] MEDS: Lidocaine 5% Patch T-DERMAL SCH (10:16)
[2018-04-06] MEDS ORDERED: Digoxin Inj 500 MCG/2 ML Ampul IV.PUSH SCH (11:15)
[2018-04-06] MEDS: Digoxin Inj 500 MCG/2 ML Ampul IV.PUSH SCH (12:05)
[2018-04-06 13:10] LABS: Hemoglobin 14.6 gm/dL (13.0-17.0); Mean Corpuscular HGB Conc 34.8 % (32.0-36.0); Mean Corpuscular Hemoglobin 31.5 pg (27.0-34.0); Mean Corpuscular Volume 90.3 fL (80.0-100.0); Mean Platelet Volume 7.7 fL (7.0-11.0); Platelet Count 268 th/mm3 (150-450); Red Blood Count 4.65 mil/mm3 (4.50-5.90); Red Cell Distribution Width 13.9 % (11.6-17.2); White Blood Count 7.2 th/mm3 (4.0-11.0)
[2018-04-06 13:38] LABS: Anion Gap 6 meq/L (5-15); Blood Urea Nitrogen 10 mg/dL (7-18); Calcium 8.7 mg/dL (8.5-10.1); Carbon Dioxide 26.2 meq/L (21.0-32.0); Chloride 108 meq/L (98-107); Glomerular Filtration Rate Greater Than 89 mL/min (>89); Glucose,Random 130 mg/dL (74-106); Potassium 3.7 meq/L (3.5-5.1); Sodium 140 meq/L (136-145)
--- NOTE | 2018-04-06 14:41 | P.PNIM ---
Subjective Interval history: Patient seen and examined this morning at the bedside for evaluation No active complaints of headache but weakness is very evident during exam and patient has slurred Afebrile overnight tele with brief period of flutter --> cardiology was consulted. Physical Exam Vital signs: Last Vital Signs Temp 98.9 F 04/06/18 08:00 Pulse 65 04/06/18 08:00 Resp 18 04/06/18 08:00 BP 136/63 04/06/18 08:00 Pulse Ox 99 04/06/18 08:00 Intake & Output 04/04/18 04/05/18 04/06/18 04/07/18 06:59 06:59 06:59 06:59 Intake Total 1000 / 1000 1000 / 1000 Balance 1000 / 1000 1000 / 1000 Weight 75.7 kg 75.7 kg gen: NAD heent: EOMI cvs: S1/S2, rrr resp: CTA bilaterally gi: soft, non tender, non distended, no guarding or rebound Neurology: Power RUE 2/5, RLE 3/5. + slurred speech. + facial RIGHT droop. Sensation V1-V3 intact. Results Labs CBC & Chem 7: 04/06/18 12:33 04/06/18 12:33 Assessment and Plan (1) Acute ischemic stroke: Code(s): I63.9 - Cerebral infarction, unspecified Status: Acute (2) Hypertension: Code(s): I10 - Essential (primary) hypertension Status: Acute Plan Patient is a 77 year old male with medical history of prior CVA stroke presenting s/p acute onset facial droop, slurred speech found to have LEFT midbrain acute CVA stroke Neurology: LEFT midbrain CVA stroke - Neurology consulted and recommendations appreciated - Cardiology consulted and recommendations appreciated. Will discuss A/C with neurology at this time for clearance - Permissive HTN for 24hrs - ASA 81mg rectal - continue NPO after [employer] eval recc appreciated - PT recommends rehab on discharge - CTH reviewed. MRI brain reviewed. Carotid imaging reviewed. - SCD for now - echo reviewed - d51/2NS while NPO ortho: back pain - lidocain patch Endocrinology: DM2 - hold oral hypoglycemic medications - RAISS w/ q6 fingersticks while NPO Cardiology: Yakov DIAZ flutter - digoxin 95mcg IV (equiv for 125mcg qD when tolerating PO) - continue statin therapy code: fc dispo: med/surg --> rehab on d/c dvt ppx SCD Progress Note: Quality VTE Deep Vein Thrombosis/Pulmonary Embolism Present on Admission: No _ (1) Hypertension Qualifiers: Hypertension type:
[2018-04-06] MEDS ORDERED: Dextrose 5%/NaCl 0.45% Inj 1,000 ML IV.CONT SCH (15:00)
[2018-04-07] MEDS: Insulin NovoLIN Regular Correctional Sugar Inj SQ SCH ×4 (00:25→21:05)
[2018-04-07] MEDS: Sod Chloride 0.9% Inj 1,000 ML IV.CONT SCH ×2 (05:58→14:16)
[2018-04-07 07:25] LABS: Hematocrit 42.8 % (39.0-51.0); Mean Corpuscular HGB Conc 34.9 % (32.0-36.0); Mean Corpuscular Hemoglobin 31.1 pg (27.0-34.0); Mean Corpuscular Volume 88.9 fL (80.0-100.0); Mean Platelet Volume 7.9 fL (7.0-11.0); Platelet Count 267 th/mm3 (150-450); Red Blood Count 4.81 mil/mm3 (4.50-5.90); Red Cell Distribution Width 13.8 % (11.6-17.2)
[2018-04-07 07:54] LABS: Calcium 8.6 mg/dL (8.5-10.1); Carbon Dioxide 25.4 meq/L (21.0-32.0); Magnesium 1.9 mg/dL (1.5-2.5); Potassium 3.4 meq/L (3.5-5.1)
[2018-04-07] MEDS ORDERED: Potassium Chlor 20 mEq Premix 20 MEQ/100 ML PIGGYBACK IV.SIG ONE (08:45)
--- NOTE | 2018-04-07 09:27 | P.PNNEU ---
Subjective Subjective Comments: no cp, no dyspnea, no pain Active Medications: Active Medications Aspirin (Aspirin Supp) 300 mg RECTAL DAILY [facility] Last Admin: 04/06/18 09:23 Dose: 300 mg Dextrose (D50w Vial) 50 ml IV.PUSH UNSCH PRN PRN Reason: PER HYPOGLYCEMIA PROTOCOL Digoxin (Lanoxin Inj) 95 mcg IV.PUSH DAILY [facility] Last Admin: 04/06/18 12:05 Dose: 95 mcg Enalaprilat (Vasotec Inj) 1.25 mg IV.PUSH Q4H PRN PRN Reason: For SBP > 220 or DBP > 120 Glucagon (Glucagon Inj) 1 mg OTHER PRN PRN PRN Reason: for Hypoglycemia Protocol Sodium Chloride (Ns Inj) 1,000 mls @ 70 mls/hr IV.CONT .[id number] [facility] Last Infusion: 04/07/18 07:16 Dose: Infused Dextrose/Sodium Chloride (D5w/1/2 Ns Inj) 1,000 mls @ 42 mls/hr IV.CONT .[id number] [facility] Last Admin: 04/06/18 17:51 Dose: 42 mls/hr Potassium Chloride (Kcl 20 Meq Premix Inj) 20 meq in 100 mls @ 50 mls/hr IV.SIG ONCE ONE Stop: 04/07/18 10:44 Insulin Human Regular (Novolin R Correctional Sugar Inj) 0 units SQ Q6HR [facility]; Protocol Last Admin: 04/07/18 07:16 Dose: Not Given Labetalol HCl (Trandate Inj) 10 mg IV.PUSH Q2H PRN PRN Reason: For SBP > 220 or DBP > 120 Lidocaine HCl (Lidoderm 5% Patch.12 Hr) 1 patch T-DERMAL DAILY [facility] Last Admin: 04/06/18 10:16 Dose: 1 patch Ondansetron HCl (Zofran Inj) 4 mg IV.PUSH Q6H PRN PRN Reason: NAUSEA Last Admin: 04/06/18 12:04 Dose: 4 mg Patch Removal (Remove Old Patch) 1 each T-DERMAL HS [facility] Last Admin: 04/06/18 20:12 Dose: 1 each Sodium Chloride (Ns Flush) 2 ml IV.FLUSH BID [facility] Last Admin: 04/06/18 20:12 Dose: 2 ml Sodium Chloride (Ns Flush) 2 ml IV.FLUSH PRN PRN PRN Reason: FLUSH AFTER USING IV ACCESS Allergies/Adverse Reactions: Allergies Allergy/AdvReac Type Severity Reaction Status Date / Time No Known Allergies Uncoded 10/11/10 13:51 Review of Systems All other systems reviewed negative except as stated in HPI Physical Exam Vital signs: Vital Signs 04/06/18 16:00 04/06/18 20:00 04/06/18 22:47 Temperature 98.8 F 97.9 F Pulse Rate 63 64 Respiratory Rate 16 12 Blood Pressure 128/64 127/68 Pulse Oximetry 95 95 95 04/07/18 00:00 04/07/18 04:00 04/07/18 08:00 Temperature 97.5 F L 98.0 F 97.4 F L Pulse Rate 59 L 65 70 Respiratory Rate 16 12 16 Blood Pressure 129/64 126/69 119/63 Pulse Oximetry 93 L 96 96 04/07/18 08:12 Temperature Pulse Rate Respiratory Rate Blood Pressure Pulse Oximetry 98 Intake & Output 04/06/18 04/07/18 04/07/18 18:59 06:59 18:59 Intake Total 1000 / 1000 1000 / 1000 Balance 1000 / 1000 1000 / 1000 Intake: IV 1000 / 1000 1000 / 1000 NS Inj 1,000 ML @ 70 mls/hr IV. 1000 / 1000 1000 / 1000 CONT .[id number] [facility] Rx#:[id number] Other: # Voids 4 Narrative: GENERAL: in NAD, SKIN: Warm and dry. HEAD: Atraumatic. Normocephalic. EYES: Pupils equal and round. ENT: No nasal bleeding or discharge. NECK: Trachea midline. No JVD. CARDIOVASCULAR: Regular rate and rhythm. RESPIRATORY: No accessory muscle use. GASTROINTESTINAL: Abdomen soft, non-tender, nondistended. MUSCULOSKELETAL: Extremities without clubbing, cyanosis, or edema. No obvious deformities. NEUROLOGICAL: Awake and alert. dysarthric speech, rt facial weakness, exact movements intact, right upper extremity 3out of 5, right lower extremity 3 out of 5 PSYCHIATRIC: Calm pleasant - Constitutional no acute distress - Routine HEENT Exam Head: Present: normocephalic Eye: Present: EOMI Objective Laboratory Results - last 24 hr 04/06/18 04/06/18 04/06/18 05:04 12:33 12:33 WBC 7.2 RBC 4.65 Hgb 14.6 Hct 42.0 MCV 90.3 MCH 31.5 MCHC 34.8 RDW 13.9 Plt Count 268 MPV 7.7 Sodium 140 Potassium 3.7 Chloride 108 H Carbon Dioxide 26.2 Anion Gap 6 BUN 10 Creatinine 0.83 Estimated GFR Greater than 89 POC Glucose Random Glucose 130 H Hemoglobin A1c 8.0 H Calcium 8.7 Magnesium 04/06/18 04/06/18 04/06/18 13:48 17:50 20:13 WBC RBC Hgb Hct MCV MCH MCHC RDW Plt Count MPV Sodium Potassium Chloride Carbon Dioxide Anion Gap BUN Creatinine Estimated GFR POC Glucose 114 H 105 105 Random Glucose Hemoglobin A1c Calcium Magnesium 04/07/18 04/07/18 04/07/18 04:30 06:03 06:03 WBC 8.0 RBC 4.81 Hgb 15.0 Hct 42.8 MCV 88.9 MCH 31.1 MCHC 34.9 RDW 13.8 Plt Count 267 MPV 7.9 Sodium 141 Potassium 3.4 L Chloride 106 Carbon Dioxide 25.4 Anion Gap 10 BUN 9 Creatinine 0.87 Estimated GFR 86 L POC Glucose 132 H Random Glucose 126 H Hemoglobin A1c Calcium 8.6 Magnesium 1.9 04/07/18 07:06 WBC RBC Hgb Hct MCV MCH MCHC RDW Plt Count MPV Sodium Potassium Chloride Carbon Dioxide Anion Gap BUN Creatinine Estimated GFR POC Glucose 115 H Random Glucose Hemoglobin A1c Calcium Magnesium Review/Management - Diagnosis (1) Acute ischemic stroke Code(s): I63.9 - Cerebral infarction, unspecified Status: Acute Current Visit: Yes (2) Hypertension Code(s): I10 - Essential (primary) hypertension Status: Acute Current Visit : Yes (3) Atrial flutter Code(s): I48.92 - Unspecified atrial flutter Status: Acute Current Visit: Yes - Review/Management Plan: 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 discussed with patient getting repeat lab draws dietary restrictions with Coumadin versus novel OAC. We discussed lack of reversing agents and some of the novel OAC's. He appears to lean towards novel OAC is requiring less blood draws. Joss 2.5 mg p.o. twice daily times 1 week followed by full dose Discharge planning inpatient rehab [facility] Behavioral modification and risk factor reduction. Weight loss, blood pressure control, blood sugar control, lipid control. Exercise
--- NOTE | 2018-04-07 09:45 | P.PN ---
Subjective Interval history: Follow-up for acute CVA. Patient reports continued right upper and lower extremity weakness with slurred speech. He did pass swallow evaluation this morning and is now able to try some oral intake. He denies any headache, chest pain, palpitations, shortness of breath. He is looking forward to going to rehab. He has no other medical complaints at this time. Physical Exam Vital signs: Vital Signs 04/06/18 16:00 04/06/18 20:00 04/06/18 22:47 Temperature 98.8 F 97.9 F Pulse Rate 63 64 Respiratory Rate 16 12 Blood Pressure 128/64 127/68 Pulse Oximetry 95 95 95 04/07/18 00:00 04/07/18 04:00 04/07/18 08:00 Temperature 97.5 F L 98.0 F 97.4 F L Pulse Rate 59 L 65 70 Respiratory Rate 16 12 16 Blood Pressure 129/64 126/69 119/63 Pulse Oximetry 93 L 96 96 04/07/18 08:12 Temperature Pulse Rate Respiratory Rate Blood Pressure Pulse Oximetry 98 Intake & Output 04/06/18 04/07/18 04/07/18 18:59 06:59 18:59 Intake Total 1000 / 1000 1000 / 1000 Balance 1000 / 1000 1000 / 1000 Intake: IV 1000 / 1000 1000 / 1000 NS Inj 1,000 ML @ 70 mls/hr IV. 1000 / 1000 1000 / 1000 CONT .[id number] [facility] Rx#:[id number] Other: # Voids 4 Narrative: GENERAL: Well-nourished, well-developed pleasant elderly male patient in [facility]. SKIN: Warm and dry. No rash. HEENT: Normocephalic. Atraumatic. Pupils equal and round. Mucous membranes pink and moist. CARDIOVASCULAR: Regular rate and rhythm. No murmur appreciated. RESPIRATORY: No accessory muscle use. Clear to auscultation. Breath sounds equal bilaterally. GASTROINTESTINAL: Abdomen soft, non-tender, nondistended. Normoactive bowel sounds x4. MUSCULOSKELETAL: No obvious deformities. Extremities without clubbing, cyanosis , or edema. NEUROLOGICAL: Awake and alert. No obvious cranial nerve deficits. 3/5 strength of RUE/RLE, 5/5 strength of LUE/LLE. Speech slurred and dysarthric. Mild right -sided facial droop. PSYCHIATRIC: Appropriate mood and affect; insight and judgment normal. Results - Labs CBC & Chem 7: 04/07/18 06:03 04/07/18 06:03 Laboratory Results - last 24 hr 04/06/18 04/06/18 04/06/18 05:04 12:33 12:33 WBC 7.2 RBC 4.65 Hgb 14.6 Hct 42.0 MCV 90.3 MCH 31.5 MCHC 34.8 RDW 13.9 Plt Count 268 MPV 7.7 Sodium 140 Potassium 3.7 Chloride 108 H Carbon Dioxide 26.2 Anion Gap 6 BUN 10 Creatinine 0.83 Estimated GFR Greater than 89 POC Glucose Random Glucose 130 H Hemoglobin A1c 8.0 H Calcium 8.7 Magnesium 04/06/18 04/06/18 04/06/18 13:48 17:50 20:13 WBC RBC Hgb Hct MCV MCH MCHC RDW Plt Count MPV Sodium Potassium Chloride Carbon Dioxide Anion Gap BUN Creatinine Estimated GFR POC Glucose 114 H 105 105 Random Glucose Hemoglobin A1c Calcium Magnesium 04/07/18 04/07/18 04/07/18 04:30 06:03 06:03 WBC 8.0 RBC 4.81 Hgb 15.0 Hct 42.8 MCV 88.9 MCH 31.1 MCHC 34.9 RDW 13.8 Plt Count 267 MPV 7.9 Sodium 141 Potassium 3.4 L Chloride 106 Carbon Dioxide 25.4 Anion Gap 10 BUN 9 Creatinine 0.87 Estimated GFR 86 L POC Glucose 132 H Random Glucose 126 H Hemoglobin A1c Calcium 8.6 Magnesium 1.9 04/07/18 07:06 WBC RBC Hgb Hct MCV MCH MCHC RDW Plt Count MPV Sodium Potassium Chloride Carbon Dioxide Anion Gap BUN Creatinine Estimated GFR POC Glucose 115 H Random Glucose Hemoglobin A1c Calcium Magnesium - Imaging Chest X-Ray 04/05/18 03:16 CONCLUSION: Low lung volumes and pulmonary vascular congestion. Head CT 04/05/18 03:16 CONCLUSION: 1. No acute intracranial findings. 2. Diffuse atrophy. 3. Old left basal ganglia lacunar infarct. Report was called by [Dr. Lea to Dr. Ibarra at [phone]. ] Head CTA 04/05/18 03:16 CONCLUSION: No evidence of proximal occlusion or high-grade stenosis. Report was called by [Dr. Lea to Dr. Rojas at [phone] ] Neck CTA 04/05/18 03:16 CONCLUSION: Ulcerated plaque right carotid bulb. No evidence of significant stenosis. CT CAD 04/05/18 03:19 CONCLUSION: Physiological brain perfusion parameters with RAPID analysis as above. The decision for consideration of therapy is multi factorial and multi disciplinary relying on subjective and objective clinical data. This data is not construed or intended to be the sole determinant of treatment eligibility. Head MRI 04/05/18 05:24 CONCLUSION: 1. Focal area of mild restricted diffusion along the left side of the midbrain consistent with an acute to subacute infarction. 2. Atrophy and chronic small vessel ischemic change. 3. Small old lacunar infarct in the left basal ganglia. Assessment and Plan - Assessment (1) Acute ischemic stroke Code(s): I63.9 - Cerebral infarction, unspecified Status: Acute (2) Hypertension Code(s): I10 - Essential (primary) hypertension Status: Acute - Plan 77 year old male with medical history of prior CVA stroke presenting s/p acute onset facial droop, slurred speech found to have LEFT midbrain acute CVA stroke Acute Left Midbrain CVA: -Head CT reviewed and unremarkable upon arrival -Brain MRI reviewed, shows Focal area of mild restricted diffusion along the left side of the midbrain consistent with an acute to subacute infarction. -Head CTA unremarkable; Neck CTA with Ulcerated plaque right carotid bulb. No evidence of significant stenosis. -Echo unremarkable with EF 55% -On IVF until tolerating oral intake -Neurology consulted, recommendations appreciated -S/p Permissive HTN x24hrs -Giving ASA 81mg rectal until able to swallow -initially NPO, ST following, diet now advanced to pureed with honey thickened liquids -PT recommends rehab on discharge -Started on Eliquis 2.5mg bid x1 week then increase to full dose per neuro, d/c ASA Paroxysmal Atrial flutter: acute, during hospitalization -Cardiology consulted, appreciate assistance, recommends NOAC when tolerating po -digoxin 95mcg IV (equiv for 125mcg qD when tolerating PO) Hyperlipidemia: acute on chronic. LDL 108. Goal < 70 -continue statin therapy Back pain: acute on chronic -continue lidocaine patch- patient reports good response DM2 -holding oral hypoglycemic medications -Monitor Accuchecks and cover with SSI Full Code DVT Prophylaxis: Eliquis Discharge Planning: Plan to discharge to [facility] when accepted.
[2018-04-07] MEDS: Lidocaine 5% Patch T-DERMAL SCH (10:10)
[2018-04-07] MEDS: Digoxin Inj 500 MCG/2 ML Ampul IV.PUSH SCH (10:11)
[2018-04-07] MEDS: Aspirin 300 MG Supp RECTAL SCH (10:21)
[2018-04-07] MEDS ORDERED: Potassium Chloride 25 MEQ Effervescent Tablet PO ONE (14:04)
[2018-04-07] MEDS ORDERED: Zolpidem Tartrate 5 MG Tablet PO PRN (21:00)
[2018-04-08] MEDS: Insulin NovoLIN Regular Correctional Sugar Inj SQ SCH ×2 (00:11→05:44)
--- NOTE | 2018-04-08 08:26 | P.PNNEU ---
Subjective Subjective Comments: No cp, no dyspnea, no murphy, no vision loss. Complains of insomnia takes a hypnotic at home not sure what the name is requesting 1 while in the hospital Active Medications: Active Medications Apixaban (Eliquis) 2.5 mg PO BID [facility] Last Admin: 04/07/18 22:24 Dose: 2.5 mg Atorvastatin Calcium (Lipitor) 40 mg PO DAILY [facility] Dextrose (D50w Vial) 50 ml IV.PUSH UNSCH PRN PRN Reason: PER HYPOGLYCEMIA PROTOCOL Digoxin (Lanoxin) 125 mcg PO DAILY [facility] Enalaprilat (Vasotec Inj) 1.25 mg IV.PUSH Q4H PRN PRN Reason: For SBP > 220 or DBP > 120 Glucagon (Glucagon Inj) 1 mg OTHER PRN PRN PRN Reason: for Hypoglycemia Protocol Insulin Human Regular (Novolin R Correctional Sugar Inj) 0 units SQ Q6HR [facility]; Protocol Last Admin: 04/08/18 05:44 Dose: Not Given Labetalol HCl (Trandate Inj) 10 mg IV.PUSH Q2H PRN PRN Reason: For SBP > 220 or DBP > 120 Lidocaine HCl (Lidoderm 5% Patch.12 Hr) 1 patch T-DERMAL DAILY [facility] Last Admin: 04/07/18 10:10 Dose: 1 patch Ondansetron HCl (Zofran Inj) 4 mg IV.PUSH Q6H PRN PRN Reason: NAUSEA Last Admin: 04/06/18 12:04 Dose: 4 mg Patch Removal (Remove Old Patch) 1 each T-DERMAL HS [facility] Last Admin: 04/07/18 22:28 Dose: 1 each Sodium Chloride (Ns Flush) 2 ml IV.FLUSH BID [facility] Last Admin: 04/07/18 22:27 Dose: 2 ml Sodium Chloride (Ns Flush) 2 ml IV.FLUSH PRN PRN PRN Reason: FLUSH AFTER USING IV ACCESS Zolpidem Tartrate (Ambien) 5 mg PO HS PRN PRN Reason: INSOMNIA Allergies/Adverse Reactions: Allergies Allergy/AdvReac Type Severity Reaction Status Date / Time No Known Allergies Uncoded 10/11/10 13:51 Review of Systems All other systems reviewed negative except as stated in HPI Physical Exam Vital signs: Vital Signs 04/07/18 09:00 04/07/18 13:06 04/07/18 16:00 Temperature 97.8 F 98.1 F Pulse Rate 71 66 69 Respiratory Rate 14 16 Blood Pressure 137/82 122/67 Pulse Oximetry 96 97 04/07/18 20:00 04/07/18 20:30 04/08/18 00:00 Temperature 97.8 F 98.0 F Pulse Rate 78 98 H 73 Respiratory Rate 18 18 Blood Pressure 128/63 136/74 Pulse Oximetry 96 95 04/08/18 04:00 04/08/18 07:54 Temperature 97.7 F 97.4 F L Pulse Rate 66 75 Respiratory Rate 18 18 Blood Pressure 120/68 145/78 H Pulse Oximetry 96 95 Intake & Output 04/07/18 04/08/18 04/08/18 18:59 06:59 18:59 Intake Total 1869 Output Total 100 / 100 Balance 1869 -100 / -100 Weight 74.4 kg Intake: IV 1869 D5W/1/2 NS Inj 1,000 ML @ 42 800 / 800 mls/hr IV.CONT .[id number] [facility] Rx# :[id number] NS Inj 1,000 ML @ 70 mls/hr IV. 1000 / 1000 CONT .[id number] [facility] Rx#:[id number] KCl 20 mEq Premix Inj 20 meq In 70 / 70 100 ml @ 50 mls/hr IV.SIG ONCE ONE Rx#:[id number] Output: Urine 100 / 100 Narrative: GENERAL: Well-nourished, well-developed pleasant elderly male patient in [facility]. SKIN: Warm and dry. No rash. HEENT: Normocephalic. Atraumatic. Pupils equal and round. Mucous membranes pink and moist. CARDIOVASCULAR: Regular rate and rhythm. RESPIRATORY: No accessory muscle use. GASTROINTESTINAL: Abdomen soft, non-tender, nondistended. MUSCULOSKELETAL: No obvious deformities. Extremities without clubbing, cyanosis , or edema. NEUROLOGICAL: Awake and alert. Oriented x3, slightly reduced right nasolabial fold, visual cage full, mildly dysarthric speech no obvious cranial nerve deficits. Right upper extremity strength 3-4 out of 5, right lower extremity 3- 4 out of 5, no neglect PSYCHIATRIC: Appropriate mood and affect; insight and judgment normal. 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 twice daily times 1 week followed by full dose Discharge planning [place] inpatient rehab Outpatient follow-up 4-6 weeks Behavioral modification and risk factor reduction. Weight loss, blood pressure control, blood sugar control, lipid control. Exercise
[2018-04-08] MEDS ORDERED: Digoxin 125 MCG Tablet PO SCH (09:00)
--- NOTE | 2018-04-08 10:53 | P.DS ---
DS: Providers Date of admission: 04/05/18 06:01 Primary care physician: UNKNOWN Consults: 04/05/18 03:16 Consult to Neurology Stat Consulting Provider: Georgina De La Vega For STAT consult, spoke directly to:: Dr. De La Vega Preferred Plant Clerk:: Georgina De La Vega Reason for Consultation: Brain Attack Spoke with:: michael weldon Date Notified:: 04/05/18 Time Notified:: 03:54 Ordering Provider: RISA 04/05/18 06:02 Consult to Neurology Routine Consulting Provider: Randal Sauceda Reason for Consultation: Ischemic Stroke Notified:: Service Spoke with:: sandra Date Notified:: 04/05/18 Time Notified:: 06:38 Comments:: dr de la vega consulted re STAT consult stroke alert Ordering Provider: CHELE Consult to Rehab Medicine Routine Consulting Provider: Lisa Rodriges Reason for Consultation: Stroke patient, assist with Rehab recommendations Notified:: Service Spoke with:: sandra Date Notified:: 04/05/18 Time Notified:: 06:41 Ordering Provider: CEHLE 04/06/18 08:27 Consult to Cardiology Routine Consulting Provider: Ryan Golden Does the patient have a Change Management Manager who follows them?: No Preferred Animal Laboratory Technician:: Wire Galvanizer Physician Reason for Consultation: Ischemic stroke, consideration for RUTH, event monitor/loop recorder Notified:: Office Spoke with:: Jelly Date Notified:: 04/06/18 Time Notified:: 08:33 Ordering Provider: CAMRON 04/06/18 12:39 HUB Only Consult Order [facility]ine [facility] Brief History from admission: This is a 77-year-old male with a history of previous CVA with no residual deficits, hypertension, diabetes mellitus and hyperlipidemia. He presented to the ED via EMS stroke alert. Went to bed around 9 last night and woke up at 230 this morning with slurred speech with right facial, right arm and right leg weakness. His then called EMS. Stroke workup shows left midbrain CVA. He has been started on aspirin suppository. Complains of lower back pain which is chronic. He is compliant with his medical therapy. All other systems reviewed negative DS: Diagnosis Discharge Diagnosis (1) Acute ischemic stroke: Status: Acute (2) Hypertension: Status: Acute DS: Summary This Patient is a 77 year old male with medical history a flutter, hyperlipidemia, diabetes mellitus type 2 and prior CVA stroke presenting s/p acute onset facial droop, slurred speech found to have LEFT midbrain acute CVA stroke. Patient was admitted for treatment and management of LEFT midbrain CVA stroke. 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 CTA carotids showing right-sided plaque which is not a culprit vessel and is in the case of stroke, in addition not hemodynamically significant. CTA brain no vessel occlusion. Echo EF greater than 50%. LDL slightly over 100. Neuro recommended Eliquis 2.5 mg p.o. twice daily times 1 week followed by full dose. Plan to continue home medication for atorvastatin, digoxin, and metformin. Discharge planning to [place] inpatient rehab Behavioral modification and risk factor reduction. Weight loss, blood pressure control, blood sugar control, lipid control. Exercise. Outpatient follow-up 4-6 weeks Time Spent with Patient Total time spent providing and/or coordinating discharge services:LESS THAN 30 MINS Quality: Stroke Last date observed well: 04/04/18 Last time observed well: 21:00 Quality: VTE Deep Vein Thrombosis/Pulmonary Embolism Present on Admission: No Exam Narrative Exam Narrative: GENERAL: Well-developed, well-nourished, male in no apparent distress SKIN: Warm and dry. HEAD: Atraumatic. Normocephalic. EYES: Pupils equal and round. No scleral icterus. No injection or drainage. ENT: No nasal bleeding or discharge. White oral thrush noted on tongue and buccal area NECK: Trachea midline. No JVD. CARDIOVASCULAR: Regular rate and rhythm. RESPIRATORY: No accessory muscle use. Clear to auscultation. Breath sounds equal bilaterally. GASTROINTESTINAL: Abdomen flat soft, non-tender, nondistended. Hepatic and splenic margins not palpable. MUSCULOSKELETAL: Extremities without clubbing, cyanosis, or edema. No obvious deformities. NEUROLOGICAL: Awake and alert and oriented x3. Generalized weakness with right- sided weakness. Aphasia, right facial droop PSYCHIATRIC: Flat mood and affect; insight and judgment poor . Results Labs on day of discharge: Labs from last 24 hours 04/08/18 04/08/18 04/07/18 05:43 00:04 12:08 POC Glucose 138 H 136 H 125 H Impressions ITS Impressions Chest X-Ray 04/05/18 03:16 CONCLUSION: Low lung volumes and pulmonary vascular congestion. Head CT 04/05/18 03:16 CONCLUSION: 1. No acute intracranial findings. 2. Diffuse atrophy. 3. Old left basal ganglia lacunar infarct. Report was called by [Dr. Lea to Dr. Ibarra at [phone]. ] Head CTA 04/05/18 03:16 CONCLUSION: No evidence of proximal occlusion or high-grade stenosis. Report was called by [Dr. Lea to Dr. Rojas at [phone] ] Neck CTA 04/05/18 03:16 CONCLUSION: Ulcerated plaque right carotid bulb. No evidence of significant stenosis. CT CAD 04/05/18 03:19 CONCLUSION: Physiological brain perfusion parameters with RAPID analysis as above. The decision for consideration of therapy is multi factorial and multi disciplinary relying on subjective and objective clinical data. This data is not construed or intended to be the sole determinant of treatment eligibility. Head MRI 04/05/18 05:24 CONCLUSION: 1. Focal area of mild restricted diffusion along the left side of the midbrain consistent with an acute to subacute infarction. 2. Atrophy and chronic small vessel ischemic change. 3. Small old lacunar infarct in the left basal ganglia. Discharge Plan Discharge Disposition Patient Disposition: [facility] Rehab Inpatient Discharge Order Discharge Orders: Discharge Order (Routine); Ordered 04/08/18 Ordered By: Vanesa Cobb [facility] Clear for Discharge (Routine); Ordered 04/08/18 Ordered By: Vanesa Sims Discharge Details Anticipated Discharge Date: 04/08/18 Discharge Comment: [facility] Primary Care Provider: UNKNOWN, Attending Provider: Gabriela Davies Other Providers: Georgina De La Vega ; Randal Sauceda ; Lisa Rodriges ; Ryan Golden ; [facility] Rxs /Orders / Referrals /Forms Prescriptions: New digoxin 125 mcg Tablet 125 mcg PO DAILY Qty: 30 RF: 0 apixaban [Eliquis] 2.5 mg Tablet 2.5 mg PO BID Qty: 60 RF: 0 zolpidem 5 mg Tablet 5 mg PO HS PRN (Reason: Insomnia) Qty: 14 RF: 0 nystatin 100,000 unit/mL suspension 1 ml PO QID 14 Days Qty: 56 RF: 0 Continue atorvastatin 40 mg Tablet 40 mg PO DAILY RF: 0 metformin 500 mg Tablet 500 mg PO BID RF: 0 Discontinued zolpidem 5 mg Tablet 1 tab PO HS RF: 0 Referrals: UNKNOWN, [Primary Care Provider] - See Instructions Discharge Instructions Additional Instructions: [employer] Prescription Drug Monitoring Database has been queried and verified prior to prescribing the controlled substance. Acute pain exception. This patient has normal, predicted, physiological, and time limited response to an adverse mechanical stimulus associated with surgery, trauma, or acute illness as described in my notes. There is a lack of alternative treatment options other than to include the prescribed narcotic treatment for this condition. Discharge Interventions Interventions: Discharge Planning - Case Management Last Done: 04/07/18 13:30 Status ED Status: Left Department
[2018-04-08] MEDS: Lidocaine 5% Patch T-DERMAL SCH (11:33)
== END 2018-04-08 12:12 ==
LOC: NEPE 03:10 → NEDA 06:01 → NEPFCDU 06:39 → N05 04-07 17:59
PROVIDERS: ADMIT Hospitalist; ATTEND Hospitalist
DX: Z86.73 Personal history of transient ischemic attack (TIA), and cerebral infarction without residual deficits; G47.00 Insomnia, unspecified; G89.29 Other chronic pain; E78.00 Pure hypercholesterolemia, unspecified; M54.5 Low back pain; R29.810 Facial weakness; H51.0 Palsy (spasm) of conjugate gaze; E11.9 Type 2 diabetes mellitus without complications; I65.21 Occlusion and stenosis of right carotid artery; I49.3 Ventricular premature depolarization; I10 Essential (primary) hypertension; E78.5 Hyperlipidemia, unspecified; R29.706 NIHSS score 6; I63.9 Cerebral infarction, unspecified; Z87.891 Personal history of nicotine dependence; I48.92 Unspecified atrial flutter; H51.20 Internuclear ophthalmoplegia, unspecified eye; G81.91 Hemiplegia, unspecified affecting right dominant side; B37.0 Candidal stomatitis; R47.01 Aphasia; Z79.84 Long term (current) use of oral hypoglycemic drugs